=== PATIENT | male | born 1985 | race Caucasian/White ===

== ENCOUNTER 2016-12-08 00:42 | Emergency (ER) | payer OTHER ==
[2016-12-08 01:01] VITALS: RESP 16; O2SAT 99
[2016-12-08 01:34] VITALS: BP 137/97; PULSE 59; TEMP 96.5
== END 2016-12-08 01:24 | disposition home or self-care (01) | DRG 918 ==
LOC: ED 00:42
DX: T59.811A Toxic effect of smoke, accidental (unintentional), initial encounter (principal); J70.5 Respiratory conditions due to smoke inhalation; Y92.812 Truck as the place of occurrence of the external cause
CPT/HCPCS: 99282